=== PATIENT | male | born 1995 | race Two or more races ===

== ENCOUNTER 2023-09-16 06:52 | Emergency (ER) | payer SELFPAY ==
[~2023-09-16] VITALS: Ht 177.8 cm; Wt 83.9 kg
[2023-09-16] MEDS ORDERED: KETOROLAC TROMETHAMINE INJ 30 MG/ML VIAL ONE (07:47)
[2023-09-16] MEDS ORDERED: ONDANSETRON HCL/PF 4 MG/2 ML VIAL ONE (07:47)
[2023-09-16] MEDS ORDERED: IV NS 0.9% 1,000 ML BAG IV ONE (08:00)
[2023-09-16] MEDS ORDERED: ONDANSETRON HCL/PF 4 MG/2 ML VIAL IVP ONE (08:00)
[2023-09-16] MEDS ORDERED: KETOROLAC TROMETHAMINE INJ 30 MG/ML VIAL IV ONE (08:00)
[2023-09-16 08:01] LABS: BASOPHILS # (AUTO) 0.1 K/uL (0.0-0.2); BASOPHILS % (AUTO) 0.6 % (0.0-2.0); EOSINOPHILS # (AUTO) 0.1 K/uL (0.0-0.7); EOSINOPHILS % (AUTO) 0.8 % (0.0-6.0); HEMATOCRIT 43 % (39-51); HEMOGLOBIN 14.5 g/dL (13.5-17.5); LYMPHOCYTES # (AUTO) 4.1 K/uL (0.8-4.8); LYMPHOCYTES % (AUTO) 40.1 % (20.0-44.0); MEAN CORPUSCULAR HEMOGLOBIN 31 PG (26.0-33.0); MEAN CORPUSCULAR HGB CONC 34 g/dl (31.0-36.0); MEAN CORPUSCULAR VOLUME 90 fL (80-96); MONOCYTES # (AUTO) 0.6 K/uL (0.1-1.30); MONOCYTES % (AUTO) 5.6 % (2.0-12.0); NEUTROPHILS # (AUTO) 5.5 K/uL (1.8-8.9); NEUTROPHILS % (AUTO) 52.9 % (43.0-81.0); PLATELET COUNT (AUTO) 251 K/uL (150-450); RED BLOOD CELL COUNT(AUTO) 4.73 MIL/uL (4.5-6.0); RED CELL DISTRIBUTION WIDTH 13.3 % (11.5-15.0); WHITE BLOOD COUNT (AUTO) 10.3 K/uL (4.3-11.0)
[2023-09-16] MEDS ORDERED: MORPHINE SULFATE INJ 4 MG/ML DISP.SYRIN ONE (08:07)
[2023-09-16 08:25] LABS: CALCIUM, SERUM 9.5 mg/dL (8.5-10.1); CREATININE 1.1 mg/dL (0.6-1.3)
[2023-09-16 08:30] LABS: ALBUMIN 4.3 g/dL (3.4-5.0); BILIRUBIN,DIRECT 0.1 mg/dL (0.0-0.2); BILIRUBIN,TOTAL 0.6 mg/dL (0.2-1.0); TOTAL PROTEIN, SERUM 8.3 g/dL (6.4-8.2)
[2023-09-16] MEDS ORDERED: MORPHINE SULFATE INJ 2 MG/ML DISP.SYRIN IV ONE (08:30)
[2023-09-16 08:31] LABS: POTASSIUM 2.8 mmol/L (3.5-5.1)
[2023-09-16] MEDS ORDERED: TAMSULOSIN 0.4 MG CAP.SR.24H PO ONE (09:00)
[2023-09-16] MEDS ORDERED: POTASSIUM CHLORIDE 20 MEQ POWDER PACKET PO ONE (09:00)
[2023-09-16] MEDS ORDERED: CIPR-262 PO (09:15)
[2023-09-16] MEDS ORDERED: NAPR-1164 PO (09:15)
[2023-09-16] MEDS ORDERED: TAMS-12 PO (09:15)
[2023-09-16] MEDS ORDERED: POTASSIUM CHLORIDE 20 MEQ POWDER PACKET ONE (09:42)
[2023-09-16] MEDS ORDERED: TAMSULOSIN 0.4 MG CAP.SR.24H ONE (09:42)
[2023-09-16 10:00] VITALS: BP 130/77; TEMP 98.3; O2SAT 100
== END 2023-09-16 10:00 | disposition home or self-care (01) ==
LOC: ER 07:00
DX: N20.0 Calculus of kidney (principal); R11.0 Nausea; Z60.2 Problems related to living alone
CPT/HCPCS: 99285; 74176; 96374; 96375; 96361; 85025; 80048; 83690; 80076; 36415; J2270; J1885; J2405; J7030